=== PATIENT | male | born 1955 | race African-American/Black ===

== ENCOUNTER 2016-08-11 00:11 | Emergency (ER) | payer SELFPAY ==
[~2016-08-11] VITALS: Ht 172.7 cm; Wt 72.6 kg
[2016-08-11 00:15] VITALS: BP_SYST 144
--- NOTE | 2016-08-11 00:15 | NUR ---
Patient to ER bed 8 to gown for evaluation. Side rails up. Report given to Gabbi NIEVES.
--- NOTE | 2016-08-11 00:20 | NUR ---
Patient alert and oriented x 4. Came in the ER with a complaint of upper abdominal pain. Per patient, he has a history of Crohn's Disease and had a flare up today around 1300 with nausea. Denies vomiting, diarrhea, headache or fever. Pain scale 8/10. No acute distress or SOB noted. Will continue to monitor.
[2016-08-11] MEDS ORDERED: NACL 0.9% 1,000 ML IV ONE (00:22)
--- NOTE | 2016-08-11 00:25 | NUR ---
ER Dr. Craft at bedside examining patient.
[2016-08-11] MEDS ORDERED: KETOROLAC TROMETHAMINE 30 MG VIAL IVP ONE ×2 (00:30→02:45)
[2016-08-11] MEDS ORDERED: ONDANSETRON HCL 4 MG/2 ML VIAL IVP ONE (00:30)
--- NOTE | 2016-08-11 00:30 | NUR ---
Dr. Craft at bedside discussing CT scan result and lab results to the patient. Patient still complaining of pain on his abdomen.
[2016-08-11 00:49] LABS: BILIRUBIN,URINE NEGATIVE (NEGATIVE); BLOOD, URINE NEGATIVE (NEGATIVE); CLARITY/URINE CLEAR (CLEAR); COLOR,URINE YELLOW (YELLOW); GLUCOSE,URINE NEGATIVE (NEGATIVE); KETONES,URINE NEGATIVE (NEGATIVE); LEUKOCYTE ESTERASE ,URINE NEGATIVE (NEGATIVE); NITRITE, URINE NEGATIVE (NEGATIVE); PROTEIN URINE NEGATIVE (NEGATIVE); UROBILINOGEN,URINE 0.2 (0.2-1.0)
[2016-08-11 01:01] LABS: BASOPHILS # (AUTO) 0.1 K/uL (0.0-0.2); BASOPHILS % (AUTO) 0.9 % (0.0-2.0); EOSINOPHILS % (AUTO) 0.1 % (0.0-4.0); HEMATOCRIT 39.5 % (36-54); HEMOGLOBIN 13.3 g/dL (14.0-18.0); LYMPHOCYTES # (AUTO) 0.5 K/uL (1.0-5.5); LYMPHOCYTES % (AUTO) 4.9 % (20.5-51.5); MEAN CORPUSCULAR HEMOGLOBIN 32 pg (27-31); MEAN CORPUSCULAR HGB CONC 34 % (32-36); MEAN CORPUSCULAR VOLUME 95 fL (79.0-98.0); MONOCYTES # (AUTO) 0.1 K/uL (0.0-1.0); MONOCYTES % (AUTO) 0.6 % (1.7-9.3); NEUTROPHILS # (AUTO) 9.6 K/uL (1.8-7.7); PLATELET COUNT (AUTO) 221 K/uL (130-430); RED BLOOD CELL COUNT(AUTO) 4.18 MIL/uL (4.2-6.2); RED CELL DISTRIBUTION WIDTH 12.7 % (9.0-15.0); WHITE BLOOD COUNT (AUTO) 10.3 K/uL (4.8-10.8)
[2016-08-11 01:31] LABS: CALCIUM 8.9 mg/dL (8.4-11.0); CREATININE 0.97 mg/dL (0.55-1.30); POTASSIUM 4.4 mmol/L (3.5-5.1)
[2016-08-11 01:31] LABS: NEUTROPHILS % (AUTO) 93.5 % (40.0-70.0)
[2016-08-11 01:35] LABS: PROTHROMBIN TIME 10.8 SECS (9.5-12.5); TOTAL BILIRUBIN 0.3 mg/dL (0.0-1.0); TOTAL PROTEIN, SERUM 7.1 g/dL (6.4-8.3)
[2016-08-11 01:55] LABS: ERYTHROCYTE SEDIMENTATION RATE 4 MM/HR (0-15)
[2016-08-11] MEDS ORDERED: MILK OF MAGNESIA 30 ML UDC PO ONE (02:45)
[2016-08-11 03:15] VITALS: BP_SYST 118
--- NOTE | 2016-08-11 03:15 | NUR ---
Patient given written and verbal discharge instructions and verbalizes understanding. ER MD discussed with patient the results and treatment provided. Patient in stable condition. No acute distress or SOB noted upon discharge. ID arm band removed. IV catheter removed intact and dressing applied, no active bleeding. Rx of Milk of Magnesia and Bentyl given. Patient educated on pain management and to follow up with PMD. Pain Scale 0/10. Opportunity for questions provided and answered.
== END 2016-08-11 03:15 | disposition home or self-care (01) ==
LOC: SED 00:11
DX: K59.00 Constipation, unspecified (principal); R11.0 Nausea; K50.90 Crohn's disease, unspecified, without complications; Z90.49 Acquired absence of other specified parts of digestive tract
CPT/HCPCS: 36415; 74176; 80053; 81003; 83690; 85025; 85610; 85651; 96374; 96375; 96376; 99285; J1885; J2405; J7030

== ENCOUNTER 2021-08-21 15:01 | Emergency (ER) | payer BC ==
[~2021-08-21] VITALS: Ht 175.3 cm; Wt 74.8 kg
[2021-08-21 15:02] VITALS: BP_SYST 133
--- NOTE | 2021-08-21 15:02 | NUR ---
WENT TO TRIAGE PT WITH DR DEGROOT, RIGHT FOREARM UNDRESSED, PT IMMEDIATELY BROUGHT BACK TO BED #1 AND TRIAGED. REPORT GIVEN TO MARKIE
[2021-08-21] MEDS ORDERED: BACITRACIN 1 GM OINT TP ONE (15:15)
[2021-08-21] MEDS ORDERED: MORPHINE 4 MG INJ. 4 MG/ML VIAL IM ONE (15:15)
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
[2021-08-21 16:04] LABS: BASOPHILS % (AUTO) 0.5 % (0.0-2.0); EOSINOPHILS # (AUTO) 0.3 K/uL (0.0-0.4); EOSINOPHILS % (AUTO) 4.1 % (0.0-4.0); HEMATOCRIT 36.3 % (36-54); HEMOGLOBIN 12.7 g/dL (14.0-18.0); LYMPHOCYTES # (AUTO) 1.2 K/uL (1.0-5.5); LYMPHOCYTES % (AUTO) 16.4 % (20.5-51.5); MEAN CORPUSCULAR HEMOGLOBIN 33 pg (27-31); MEAN CORPUSCULAR HGB CONC 35 % (32-36); MEAN CORPUSCULAR VOLUME 94 fL (79.0-98.0); MONOCYTES # (AUTO) 0.8 K/uL (0.0-1.0); MONOCYTES % (AUTO) 10.2 % (1.7-9.3); NEUTROPHILS # (AUTO) 5.1 K/uL (1.8-7.7); NEUTROPHILS % (AUTO) 68.8 % (40.0-70.0); PLATELET COUNT (AUTO) 218 K/uL (130-430); RED BLOOD CELL COUNT(AUTO) 3.88 MIL/uL (4.2-6.2); RED CELL DISTRIBUTION WIDTH 12.6 % (9.0-15.0); WHITE BLOOD COUNT (AUTO) 7.5 K/uL (4.8-10.8)
--- NOTE | 2021-08-21 16:04 | NUR ---
bactacin applies to arm and non adhesive dressing applied by EMT, with wrap, pt. tolerated well, stated medicine helped alot Addendum: 08/21/21 at 1659 by PAULA bacitracin
[2021-08-21] MEDS ORDERED: IBUP-1971 PO (16:37)
[2021-08-21] MEDS ORDERED: HYDR-3917 PO (16:37)
[2021-08-21 17:00] VITALS: BP_SYST 150
--- NOTE | 2021-08-21 17:00 | NUR ---
Patient given written and verbal discharge instructions and verbalizes understanding. ER discussed with patient the results and treatment provided. Patient in stable condition. ID arm band removed. Rx of [place] and Motrin given. Patient educated on pain management and to follow up with PMD. Pain Scale 5. Opportunity for questions provided and answered. Medication side effect fact sheet provided.
[2021-08-21 17:04] LABS: CALCIUM 8.3 mg/dL (8.4-11.0); CREATININE 1.04 mg/dL (0.55-1.30)
[2021-08-21 17:09] LABS: POTASSIUM 2.9 mmol/L (3.5-5.1)
[2021-08-21 17:18] LABS: ALBUMIN 3.6 g/dL (3.4-4.8); C-REACTIVE PROTEIN QUANT 0.8 mg/dL (0-0.5); TOTAL BILIRUBIN 1.1 mg/dL (0.0-1.0)
== END 2021-08-21 17:00 | disposition home or self-care (01) ==
LOC: SED 15:01
DX: T22.211A Burn of second degree of right forearm, initial encounter (principal); Z79.899 Other long term (current) drug therapy; X16.XXXA Contact with hot heating appliances, radiators and pipes, initial encounter; Y93.89 Activity, other specified; Y92.89 Other specified places as the place of occurrence of the external cause; Y99.8 Other external cause status
CPT/HCPCS: 16020; 36415; 80053; 85025; 86140; 96372; 99283; J2270

== ENCOUNTER 2021-08-23 16:03 | Emergency (ER) | payer BC ==
[~2021-08-23] VITALS: Ht 175.3 cm; Wt 74.8 kg
[~2021-08-23 16:03] MED LIST: HYDR-3917 PO; IBUP-1971 PO
[2021-08-23 16:08] VITALS: BP_SYST 132
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
--- NOTE | 2021-08-23 16:14 | NUR ---
Dr Hernandez at Pt bedside
[2021-08-23] MEDS ORDERED: MORPHINE 4 MG INJ. 4 MG/ML VIAL IM ONE (16:15)
[2021-08-23] MEDS ORDERED: MORPHINE 4 MG INJ. 4 MG/ML VIAL ONE (16:19)
[2021-08-23] MEDS ORDERED: BACITRACIN 1 GM OINT TP ONE (16:44)
--- NOTE | 2021-08-23 17:03 | NUR ---
Dressed wound: Applied Basitracin, non-adherent gauze, curlex gauze, & tubular gauze.
[2021-08-23 17:50] VITALS: BP_SYST 134
--- NOTE | 2021-08-23 17:51 | NUR ---
Patient given written and verbal discharge instructions and verbalizes understanding. ER Dr David CASTRO discussed with patient the results and treatment provided. Patient in stable condition. Rx of given. Patient educated on pain management and to follow up with PMD. Pain Scale . Opportunity for questions provided and answered. Medication side effect fact sheet provided.
== END 2021-08-23 17:47 | disposition home or self-care (01) ==
LOC: SED 16:03
DX: T22.211D Burn of second degree of right forearm, subsequent encounter (principal); Z48.00 Encounter for change or removal of nonsurgical wound dressing; X58.XXXD Exposure to other specified factors, subsequent encounter
CPT/HCPCS: 96372; 99283; J2270

== ENCOUNTER 2021-08-27 07:34 | Emergency (ER) | payer BC ==
[~2021-08-27] VITALS: Ht 175.3 cm; Wt 79.4 kg
[2021-08-27 07:35] VITALS: BP_SYST 134
--- NOTE | 2021-08-27 07:35 | NUR ---
PT TRIAGED AND PLACED IN ER WR FOR AVAILABLE BED, ER DR. DEGROOT MADE AWARE
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
--- NOTE | 2021-08-27 07:50 | NUR ---
Patient to ER bed 1 to gown for evaluation. Side rails up.
--- NOTE | 2021-08-27 07:55 | NUR ---
ER DR. DEGROOT EXAMINING PT
[2021-08-27] MEDS ORDERED: NEOM28.37 TP (08:14)
[2021-08-27] MEDS ORDERED: MORPHINE 4 MG INJ. 4 MG/ML VIAL IM ONE (08:15)
[2021-08-27] MEDS ORDERED: BACITRACIN 1 GM OINT TP ONE ×2 (08:15→08:24)
[2021-08-27 08:39] VITALS: BP_SYST 134
--- NOTE | 2021-08-27 08:40 | NUR ---
Patient given written and verbal discharge instructions and verbalizes understanding. ER MD discussed with patient the results and treatment provided. Patient in stable condition. ID arm band removed. Rx of NEOSPORIN given. Patient educated on pain management and to follow up with PMD. Pain Scale 0/10. Opportunity for questions provided and answered. Medication side effect fact sheet provided.
== END 2021-08-27 08:39 | disposition home or self-care (01) ==
LOC: SED 07:34
DX: T22.211A Burn of second degree of right forearm, initial encounter (principal); X11.8XXA Contact with other hot tap-water, initial encounter; Y93.89 Activity, other specified; Y92.89 Other specified places as the place of occurrence of the external cause; Y99.8 Other external cause status
CPT/HCPCS: 96372; 99283; J2270

== ENCOUNTER 2023-02-13 22:47 | Emergency (ER) | payer BC ==
[~2023-02-13] VITALS: Ht 175.3 cm; Wt 73.5 kg
[~2023-02-13 22:47] MED LIST changes: +NEOM28.37 TP
[2023-02-13 22:52] VITALS: BP_SYST 116; PULSE 62; RESP 20; TEMP 98.2; O2SAT 99
[2023-02-13] MEDS ORDERED: NACL 0.9% 1,000 ML IV ONE (23:45)
[2023-02-13] MEDS ORDERED: KETOROLAC TROMETHAMINE 30 MG VIAL IVP ONE (23:45)
[2023-02-14 00:18] LABS: BASOPHILS % (AUTO) 0.3 % (0.0-2.0); EOSINOPHILS # (AUTO) 0.3 K/uL (0.0-0.4); EOSINOPHILS % (AUTO) 2.5 % (0.0-4.0); HEMATOCRIT 42.4 % (36-54); LYMPHOCYTES % (AUTO) 19.2 % (20.5-51.5); MEAN CORPUSCULAR HEMOGLOBIN 32 pg (27-31); MEAN CORPUSCULAR HGB CONC 33 % (32-36); MEAN CORPUSCULAR VOLUME 97 fL (79.0-98.0); MONOCYTES # (AUTO) 0.9 K/uL (0.0-1.0); MONOCYTES % (AUTO) 8.7 % (1.7-9.3); NEUTROPHILS # (AUTO) 7.3 K/uL (1.8-7.7); NEUTROPHILS % (AUTO) 69.3 % (40.0-70.0); PLATELET COUNT (AUTO) 286 K/uL (130-430); RED BLOOD CELL COUNT(AUTO) 4.36 MIL/uL (4.2-6.2); RED CELL DISTRIBUTION WIDTH 14.3 % (9.0-15.0); WHITE BLOOD COUNT (AUTO) 10.5 K/uL (4.8-10.8)
[2023-02-14 00:29] LABS: BILIRUBIN,URINE NEGATIVE (NEGATIVE); BLOOD, URINE NEGATIVE (NEGATIVE); CLARITY/URINE CLEAR (CLEAR); COLOR,URINE YELLOW (YELLOW); GLUCOSE,URINE NEGATIVE (NEGATIVE); KETONES,URINE NEGATIVE (NEGATIVE); LEUKOCYTE ESTERASE ,URINE NEGATIVE (NEGATIVE); NITRITE, URINE NEGATIVE (NEGATIVE); PH,URINE 6.5 (5.0-8.0); UROBILINOGEN,URINE 0.2 (0.2-1.0)
[2023-02-14 00:30] LABS: PROTEIN URINE NEGATIVE (NEGATIVE)
[2023-02-14 00:33] LABS: CALCIUM 8.2 mg/dL (8.4-11.0); CREATININE 1.09 mg/dL (0.55-1.30); POTASSIUM 3.7 mmol/L (3.5-5.1)
[2023-02-14 00:37] LABS: TOTAL BILIRUBIN 0.5 mg/dL (0.0-1.0); TOTAL PROTEIN, SERUM 7.7 g/dL (6.4-8.3)
[2023-02-14 01:19] VITALS: TEMP 98
[2023-02-14] MEDS ORDERED: MORPHINE 4 MG INJ. 4 MG/ML VIAL IVP ONE (01:30)
[2023-02-14 04:15] VITALS: BP_SYST 133; PULSE 70; RESP 15; O2SAT 93
== END 2023-02-14 04:14 | disposition home or self-care (01) ==
LOC: SED 22:47
DX: R10.84 Generalized abdominal pain (principal); K50.90 Crohn's disease, unspecified, without complications; Z79.899 Other long term (current) drug therapy
CPT/HCPCS: 99285; 74176; 80053; 85025; 36415; 76376; 81003; 96374; 96361; 96375; J1885; J2270; J7030